=== PATIENT | female | born 1940 | race Caucasian/White ===

== ENCOUNTER 2020-02-11 10:18 | Emergency (ER) | payer MEDICARE, SELFPAY ==
[2020-02-11 10:32] VITALS: BMI 25.4
[2020-02-11 10:37] VITALS: BP 143/53; PULSE 86; RESP 18; TEMP 37.6; O2SAT 95; BMI 25.4
--- NOTE | 2020-02-11 10:39 | XR_ITS ---
PROCEDURE: XR CHEST 2V CLINICAL HISTORY: COUGH COMPARISON: CT [facility] CT CHEST W/O CONTRAST from 09/25/2015 FINDINGS: Mild cardiomegaly without failure. Asymmetric increased density in the left apex consistent with scarring similar to 09/25/2015 There is a partially calcified right breast implant. No acute bony findings. IMPRESSION: Chronic changes, no acute finding Dictated b Stephan Fiore MD 02/11/2020 11:43 Stephan Fiore MD in [place] 02/11/2020 11:43
--- NOTE | 2020-02-11 10:45 | HMH.EDGENADL ---
ED Disposition Clinical Impression: Viral upper respiratory infection UTI (urinary tract infection) Qualifiers: Urinary tract infection type: site unspecified Hematuria presence: without hematuria Qualified Code(s): N39.0 - Urinary tract infection, site not specified Disposition: Home, Self-Care Condition on Discharge: Good Instructions: DI for Urinary Tract Infection (UTI), DI for Viral Upper Respiratory Infection -- Adult Additional Instructions: Antibiotic as prescribed. Tessalon as needed for cough. Tylenol as needed for fever. Additional instructions for URINARY TRACT INFECTION: See your physician in 2-3 days for follow up and culture results. Return immediately if you have an uncontrollable fever greater than 102 degrees, severe back or abdominal pain, inability to urinate, or repetitive vomiting. Additional instructions for UPPER RESPIRATORY INFECTION: See your physician if not improving in 3-4 days or if worsening. Rest and drink plenty of fluids. Return immediately if you have an uncontrollable fever greater than 104 degrees, difficulty breathing or shortness of breath, persistent vomiting, or inability to swallow. Prescriptions: Cefdinir [Omnicef 300mg Capsule] 300 mg PO BID #20 cap Transmission Status: Received by [facility] #[id number] Benzonatate [Tessalon Perle 100mg Cap] 100 mg PO TIDP PRN #20 cap PRN Reason: Cough Transmission Status: Received by [facility] #[id number] Referrals: Neftaly Soares [Primary Care Provider] - - Critical Care Critical Care Time: No Attestation: On 02/11/20, the high probability of a clinically significant, sudden or life threatening deterioration of the following system(s) required my full and direct attention, intervention and personal management. The time I documented below is in addition to time spent performing reported procedures but includes the following listed in this critical care notation. Medical Decision Making - Medical Records Medical records reviewed: Yes: I reviewed the patient's medical records. - Dante Inquiry Pt receiving controlled substance: No Vital Signs: 02/11/20 10:37 02/11/20 11:54 Temperature 99.6 F 99.0 F Temperature Source Oral Oral Pulse Rate 84 Pulse Rate [Radial] 86 Respiratory Rate 18 16 Blood Pressure 140/82 Blood Pressure [Right Arm] 143/53 H Blood Pressure Mean [Right Arm] 83 Blood Pressure Source Automatic Cuff Blood Pressure Source [Right Arm] Automatic Cuff Blood Pressure Position Sitting 02 Sat by Pulse Oximetry 95 Oxygen Delivery Method Room Air Room Air - Lab Data Lab results reviewed: Yes: I reviewed the patient's lab results. Lab Results 02/11/20 10:47: WBC 7.5, RBC 3.37 L, Hgb 11.0 L, Hct 32.5 L, MCV 96.5, MCH 32.6 H, MCHC 33.7, RDW 16.4, Plt Count 141 L, MPV 8.3, Neut % (Auto) 83.3 H, Lymph % (Auto) 9.5 L, Bullock % (Auto) 5.0, Eos % (Auto) 1.9, Baso % (Auto) 0.4, Neut # (Auto) 6.3, Lymph # (Auto) 0.7, Bullock # (Auto) 0.4, Eos # (Auto) 0.1, Baso # (Auto) 0.0 02/11/20 10:47: Sodium 141, Potassium 3.9, Chloride 105, Carbon Dioxide 26, Anion Gap 13.9, BUN 25 H, Creatinine 1.50 H, Estimated Creat Clear 28, Estimated GFR 33 L, Est GFR ( Amer) 40 L, Glucose 105 H, Calcium 9.1, Total Bilirubin 0.9, AST 27, ALT 10 L, Alkaline Phosphatase 119, Total Protein 7.2, Albumin 4.1, Globulin 3.1, Albumin/Globulin Ratio 1.3 02/11/20 10:47: Urine Color Yellow, Urine Appearance Clear, Urine pH 6.0, Ur Specific [place] 1.010, Urine Protein Negative, Urine Glucose (UA) Negative, Urine Ketones Negative, Urine Blood 1+, Urine Nitrate Negative, Urine Bilirubin Negative, Urine Urobilinogen 0.2, Ur Leukocyte Esterase 2+ A, Urine RBC 3-5, Urine WBC 50-100, Ur Squamous Epith Cells Occasional, Amorphous Sediment 1+, Urine Bacteria None 02/11/20 10:47: Lactate 0.8 02/11/20 10:49: Chlamy pneumoniae PCR Not detected, Adenovirus (PCR) Not detected, B. pertussis DNA (PCR) Not detected, Coronavirus OC43 (PCR) Not d
[2020-02-11 10:54] LABS: Adenovirus,PCR Not Detected (NotDetected); Bordetella Pertussis Not Detected (NotDetected); Chlamydophila Pneumoniae, PCR Not Detected (NotDetected); Coronavirus 19, PCR Not Detected (NotDetected); Coronavirus 229E Not Detected (NotDetected); Coronavirus NL63 Not Detected (NotDetected); Coronavirus OC43 Not Detected (NotDetected); Coronovirus HKU1,PCR Not Detected (NotDetected); Human Metapneumovirus Not Detected (NotDetected); Influenza A, PCR Not Detected (NotDetected); Influenza AH1, 2009 Not Detected (NotDetected); Influenza AH1, PCR Not Detected (NotDetected); Influenza AH3,PCR Not Detected (NotDetected); Influenza B, PCR Not Detected (NotDetected); Mycoplasma Pneumoniae, PCR Not Detected (NotDetected); Parainfluenza 1, PCR Not Detected (NotDetected); Parainfluenza 2, PCR Not Detected (NotDetected); Parainfluenza 3, PCR Not Detected (NotDetected); Parainfluenza 4, PCR Not Detected (NotDetected); Respiratory Syncytial Virus Not Detected (NotDetected)
[2020-02-11 10:56] LABS: Microscopic, Urine URINE MICROSCOPIC (MICROSCOPIC)
[2020-02-11 10:58] LABS: Basophils % 0.4 % (0.1-2.0); Eosinophils # 0.1 K/mm3 (0.0-0.4); Eosinophils % 1.9 % (0.1-12.0); Hematocrit 32.5 % (37.0-47.0); Lymphocytes # 0.7 K/mm3 (0.7-4.5); Lymphocytes % 9.5 % (10-50); Mean Corpuscular HGB Conc 33.7 g/dL (31.8-35.4); Mean Corpuscular Hemoglobin 32.6 pg (27.0-31.2); Mean Corpuscular Volume 96.5 fl (81-99); Mean Platelet Volume 8.3 fl (7.4-10.4); Monocytes # 0.4 K/mm3 (0.1-1.0); Neutrophils # 6.3 K/mm3 (1.8-7.8); Neutrophils % 83.3 % (37.0-80.0); Platelet Count 141 K/mm3 (142-424); Red Blood Count 3.37 M/mm3 (4.20-5.40); Red Cell Distribution Width 16.4 % (11.5-17.5); White Blood Count 7.5 K/mm3 (4.8-10.8)
[2020-02-11 10:59] LABS: Appearance,Urine CLEAR (Clear); Bilirubin,Urine Negative (Negative); Blood, Urine 1+ (Negative); Color,Urine YELLOW (Yellow); Glucose,Urine (UA) Negative (Negative); Ketones,Urine Negative (Negative); Leukocyte Esterase,Urine 2+ (Negative); Nitrate,Urine Negative (Negative); Protein,Urine Negative (Negative); Urobilinogen,Urine 0.2 EU/dl (0.2)
[2020-02-11 11:04] LABS: Chloride 105 mmol/L (98-107); Potassium 3.9 mmoL/L (3.5-5.1); Sodium 141 mmol/L (136-145)
[2020-02-11 11:07] LABS: Alanine Aminotransferase 10 U/L (12-78); Albumin Level 4.1 g/dl (3.5-5.0); Albumin/Globulin Ratio 1.3 (1.1-1.8); Alkaline Phosphatase 119 U/L (38-126); Anion Gap 13.9 mEq/L (5-15); Aspartate Amino Transferase 27 U/L (14-36); Bilirubin,Total 0.9 mg/dl (0.2-1.3); Blood Urea Nitrogen 25 mg/dl (7-17); Calcium 9.1 mg/dl (8.4-10.2); Carbon Dioxide 26 mmol/L (22.0-30.0); Creatinine Clearance Estimated 28 mL/min (50-200); Estimated Glomerular Filt Rate 33 ml/min (>60); GFR (African American) 40 ML/MIN (>60); Globulin 3.1 g/dL (1.3-3.2); Glucose 105 mg/dl (74-100); Lactic Acid 0.8 mmol/L (0.7-2.1); Total Protein,Serum 7.2 g/dl (6.3-8.2); WBC,Urine 50-100 #/hpf (0-3)
[2020-02-11 11:08] LABS: Amorphous Sediment,Urine 1+ /lpf; Squamous Epithelial Cell,Urine Occasional #/hpf (0-5)
[2020-02-11 11:54] VITALS: BP 140/82; PULSE 84; RESP 16; TEMP 37.2; O2SAT 98
[2020-02-11 13:31] LABS: Rhinovirus/Enterovirus Detected (NotDetected)
== END 2020-02-11 11:56 | disposition home or self-care (01) ==
PROVIDERS: Emergency Provider Emergency Medicine; PCP Family Medicine
DX: J06.9 Acute upper respiratory infection, unspecified (principal); N30.00 Acute cystitis without hematuria; I10 Essential (primary) hypertension; E78.5 Hyperlipidemia, unspecified; B34.8 Other viral infections of unspecified site; Z79.899 Other long term (current) drug therapy
CPT/HCPCS: 71046; 80053; 81001; 83605; 85025; 87040; 87086; 87088; 87186; 87581; 87633; 87798; 96374; 99284

== ENCOUNTER 2022-08-13 04:17 | Inpatient (IN) | payer MEDICARE, SELFPAY ==
[2022-08-13] VITALS (16 sets, daily range): BP systolic 103–165; BP diastolic 55–97; PULSE 86–122; RESP 17–33; TEMP 36.5–36.9; O2SAT 89–96; BMI 22.2; BMI 22.8
--- NOTE | 2022-08-13 04:23 | ECG_ITS ---
APPROVED REPORT Exam: Resting ECG HR:119 bpm ECG Measurements Heart Rate 119 AXES QRSd 88 QRS 80 QT 297 T 253 QTc 368 Conclusion ATRIAL FIBRILLATION WITH RAPID VENTRICULAR RESPONSE ST DEVIATION AND MODERATE T-WAVE ABNORMALITY, CONSIDER LATERAL ISCHEMIA [-0.1+ mV T-WAVE IN I/aVL/V5/V6] ST DEVIATION AND MODERATE T-WAVE ABNORMALITY, CONSIDER INFERIOR ISCHEMIA [-0.1+ mV T-WAVE IN II/aVF] ABNORMAL ECG UNCONFIRMED REPORT Electronically signed by : Nico Strange MD 08/13/2022 20:20:51
--- NOTE | 2022-08-13 04:39 | XR_ITS ---
PROCEDURE INFORMATION: Exam: XR Right Hip Exam date and time: 08/13/2022 4:49 AM Age: 82 years old Clinical indication: Injury or trauma; Fall; Blunt trauma (contusions or hematomas); Right; Prior surgery; Surgery type: Left hip; Additional info: Fall, R hip pain TECHNIQUE: Imaging protocol: Radiologic exam of the Right hip. Views: 2 or 3 views hip with pelvis when performed. COMPARISON: No relevant prior studies available. FINDINGS: Bones/joints: Acute mildly displaced right subcapital femoral neck fracture with apex anterior angulation and varus impaction. The hips are located. Osteopenia. Intramedullary nail screw fixation of the left femur. Soft tissues: Unremarkable. IMPRESSION: Acute mildly displaced right subcapital femoral neck fracture with apex anterior angulation and varus impaction.
--- NOTE | 2022-08-13 04:39 | XR_ITS ---
PROCEDURE INFORMATION: Exam: XR Chest Exam date and time: 08/13/2022 4:48 AM Age: 82 years old Clinical indication: Injury or trauma; Fall; Blunt trauma (contusions or hematomas); Prior surgery; Additional info: Fall, R hip pain TECHNIQUE: Imaging protocol: Radiologic exam of the chest. Views: 1 view. COMPARISON: CR XR CHEST 2V 02/11/2020 10:49 AM FINDINGS: Lungs: Pulmonary vascular congestion. Similar scarring at the left lung apex. Pleural spaces: Small bilateral pleural effusions. No pneumothorax. Heart/Mediastinum: Cardiomegaly. Bones/joints: Unremarkable. Soft tissues: Calcified right breast implant. Gastrointestinal tract: Possible diverticulum arising from the upper thoracic esophagus. IMPRESSION: Cardiomegaly with small bilateral pleural effusions and pulmonary vascular congestion.
[2022-08-13 04:48] LABS: Basophils % 0.3 % (0.1-2.0); Eosinophils % 0.3 % (0.1-12.0); Hematocrit 33.4 % (37.0-47.0); Hemoglobin 10.4 g/dL (12.2-16.2); Lymphocytes # 0.9 K/mm3 (0.7-4.5); Mean Corpuscular HGB Conc 31.2 g/dL (31.8-35.4); Mean Corpuscular Hemoglobin 32.1 pg (27.0-31.2); Mean Platelet Volume 7.8 fl (7.4-10.4); Monocytes # 0.6 K/mm3 (0.1-1.0); Monocytes % 7.3 % (1.7-9.3); Neutrophils # 6.3 K/mm3 (1.8-7.8); Neutrophils % 80.1 % (37.0-80.0); Platelet Count 176 K/mm3 (142-424); Red Blood Count 3.24 M/mm3 (4.20-5.40); Red Cell Distribution Width 17.2 % (11.5-17.5); White Blood Count 7.9 K/mm3 (4.8-10.8)
[2022-08-13 04:55] LABS: Coronavirus 19, PCR Not Detected (NotDetected); Influenza A, PCR Not Detected (NotDetected); Influenza B, PCR Not Detected (NotDetected)
--- NOTE | 2022-08-13 05:00 | CT_ITS ---
PROCEDURE INFORMATION: Exam: CT Right Lower Extremity Without Contrast, Hip Exam date and time: 08/13/2022 5:13 AM Age: 82 years old Clinical indication: Injury or trauma; Fall; Additional info: Fall, hip FX TECHNIQUE: Imaging protocol: CT of the Right lower extremity without contrast was performed. Exam focused on the hip. Radiation optimization: All CT scans at this facility use at least one of these dose optimization techniques: automated exposure control; mA and/or kV adjustment per patient size (includes targeted exams where dose is matched to clinical indication); or iterative reconstruction. Other protocol: This patient has received 0 known CTs and 0 known cardiac nuclear medicine studies in the 12 months prior to the current study. COMPARISON: CR XR HIP RT 2-3V W/PELVIS 08/13/2022 4:49 AM FINDINGS: Bones/joints: Acute mildly displaced right subcapital femoral neck fracture with apex anterior angulation and varus impaction. The right hip is located. Osteopenia. There is some ill-defined edema and hemorrhage about the right hip. No large discrete hematoma. Soft tissues: See Bones/joints finding. IMPRESSION: Acute mildly displaced right subcapital femoral neck fracture with apex anterior angulation and varus impaction
[2022-08-13 05:02] LABS: Alanine Aminotransferase 24 U/L (12-78); Albumin Level 4.2 g/dl (3.5-5.0); Albumin/Globulin Ratio 1.4 (1.1-1.8); Alkaline Phosphatase 129 U/L (38-126); Anion Gap 8.7 mEq/L (5-15); Aspartate Amino Transferase 43 U/L (14-36); Bilirubin,Total 0.9 mg/dl (0.2-1.3); Blood Urea Nitrogen 31 mg/dl (7-17); Calcium 8.6 mg/dl (8.4-10.2); Carbon Dioxide 31 mmol/L (22.0-30.0); Chloride 107 mmol/L (98-107); Creatinine Clearance Estimated 24 mL/min (50-200); Estimated Glomerular Filt Rate 36 ml/min (>60); GFR (African American) 43 ML/MIN (>60); Glucose 129 mg/dl (74-100); Potassium 3.7 mmoL/L (3.5-5.1); Sodium 143 mmol/L (136-145); Total Protein,Serum 7.2 g/dl (6.3-8.2)
[2022-08-13 05:11] LABS: NT Pro Brain Natriuretic Pep. 6240 pg/mL (0-450)
[2022-08-13 05:19] LABS: T4 (Thyroxine) 10.6 ug/dl (5.53-11.0)
--- NOTE | 2022-08-13 05:41 | PC.NURSE ---
Patients daughter states that her mother has had a dti on her coccyx that she has been treating at home with rx silvadene cream that was given to her by her pcp.
--- NOTE | 2022-08-13 05:44 | PC.NURSE ---
increased pt's o2 to 4lpm nc d/t sat maintaining 85% after returning from ct scan
--- NOTE | 2022-08-13 05:45 | PC.NURSE ---
edmonds cath placed, pt tolerated fair d/t hip pain with positioning
--- NOTE | 2022-08-13 05:54 | PC.NURSE ---
Dr. Schroeder s/w Joshua Szymanski, hospitalist, for admission
[2022-08-13 06:05] LABS: Microscopic, Urine URINE MICROSCOPIC (MICROSCOPIC)
--- NOTE | 2022-08-13 06:05 | PC.NURSE ---
hospitalist at bedside
--- NOTE | 2022-08-13 06:06 | HMH.EDFALL ---
Discharge Plan Disposition Patient Disposition: Admitted As Inpatient Clinical Impressions Clinical Impression: Chronic renal insufficiency, Closed hip fracture, A-fib, Hypothyroidism (acquired) Discharge ED Provider: Elda (ED)Corey Fall HPI General Chief Complaint: Fall Stated Complaint: Fall/Right hip pain Time Seen by Provider: 08/13/22 05:45 Mode of Arrival: EMS Source of Information: Patient, Relative, EMS and Medical Record Limitations: No Limitations Description of Symptoms (Recalled from ER Triage Doc. by RN): Patient arrived via ems from [facility]. Per EMS, patient was ambulating with family assistance from her wheel chair into her recliner at approx 2230 when she fell. Patient was assisted into bed by family and has been c/o right hip pain since. Pt also had a left hip fracture and replacement 5 months ago. History of Present Illness HPI Narrative: fall at home with acute rt hip pain MD complaint: fall Onset (ago): hour(s) Fall from: walking Fall witnessed: yes, by family Place fall occurred: home Loss of consciousness: none Prolonged down time: no Symptoms prior to fall: none Context: tripped/slipped and history of frequent falls Location of injury - extremities: Right: thigh Severity: moderate Related Data Home Medications Medication Instructions Recorded Confirmed atorvastatin 40 mg tablet 40 mg PO HS Cholesterol 02/11/20 08/13/22 furosemide 40 mg tablet 20 mg PO DIRECTED Fluid 02/11/20 08/13/22 levothyroxine 75 mcg tablet 50 mcg PO DAILY thyroid 02/11/20 08/13/22 lorazepam 1 mg tablet 1 mg PO HS Anxiety 02/11/20 08/13/22 metoprolol succinate 50 mg 100 mg PO DAILY beta vj 02/11/20 08/13/22 tablet,extended release 24 hr pantoprazole 40 mg tablet,delayed 40 mg PO BID GERD 02/11/20 08/13/22 release potassium chloride 10 mEq 10 meq PO DIRECTED Supplement 02/11/20 08/13/22 capsule,extended release buspirone 15 mg tablet 15 mg PO BID Depression 08/13/22 08/13/22 duloxetine 30 mg capsule,delayed 30 mg PO DAILY Pain 08/13/22 08/13/22 release famotidine 20 mg tablet 20 mg PO HS GERD 08/13/22 08/13/22 Allergies Allergy/AdvReac Type Severity Reaction Status Date / Time clindamycin AdvReac Nausea Verified 08/13/22 04:40 [facility] Disclaimer: The information contained in this section may have been updated after the patient was seen, as this information can be updated by other users. Medical History (Updated 08/13/22 @ 06:17 by Corey Schroeder (CAR)MD) Atrial fibrillation COPD (chronic obstructive pulmonary disease) History of gastroesophageal reflux (GERD) Hyperlipidemia Hypertension On home oxygen therapy Surgical History (Updated 08/13/22 @ 04:49 by Annie Emmanuel RN) History of hip replacement Social History Smoking Status: Never smoker alcohol intake: never current occupational status: retired Travel in the last 8 weeks: None ROS Obtained: Yes All systems reviewed & no additional complaints except as documented Physical Exam General General appearance: alert Head Head exam: normocephalic Eye Eye exam: Present PERRL and EOMI ENT ENT exam: Present mucous membranes moist Neck Neck exam: Present trachea midline Respiratory Respiratory exam: Absent respiratory distress Cardiovascular Cardiovascular exam: Present irregular rhythm Abdominal Exam Abdominal exam: Present soft Expanded Lower Extremity Exam Right: Hip/Pelvis exam: Present shortening of leg and pain on hip/pelvis palpation Neurovascular/Tendon exam: Absent pulse deficit Neurological Exam Neurological exam: Present alert and CN II-XII intact Skin Skin exam: Absent rash Medical Decision Making Medical Records Medical records reviewed: Yes I reviewed the patient's medical records. Dante Inquiry Pt receiving controlled substance: No Vital Signs: 08/13/22 04:28 Temperature 98 F Temperature Source Oral Pulse Rate [Apical] 104 H Respiratory Rat
--- NOTE | 2022-08-13 06:06 | PC.NURSE ---
Called general warehouse associate for bed assignment
--- NOTE | 2022-08-13 06:15 | EXP.HP ---
History of Present Illness *Admission Date: 08/13/22 *Reason for visit:: Fall, Right Hip Pain *History of present illness: Ms. Griffin is a 82-year-old female who fell at home from ground level while family was transferring her to her wheel chair. This resulted in immediate pain. She was brought into the ER for evaluation. In the ER, she had imaging of the hip that showed a mildly displaced right subcapital femoral fracture with apex anterior angulation and varus impaction. She will be admitted with Orthopaedics to see. The plan of care was discussed with the patient and daughter at bedside. Both verbalized understanding and agreement with the plan of care. [facility] Disclaimer: The information contained in this section may have been updated after the patient was seen, as this information can be updated by other users. Medical History Aortic stenosis Atrial fibrillation Breast cancer Cardiomyopathy CHF (congestive heart failure) COPD (chronic obstructive pulmonary disease) Dyspnea Elevated troponin History of gastroesophageal reflux (GERD) History of GI bleed Hyperlipidemia Hypertension On home oxygen therapy Tricuspid regurgitation Surgical History H/O bilateral mastectomy History of hip replacement Family History (Updated 08/13/22 @ 12:17 by Jessica Salazar RN) Lung cancer Social History Smoking Status: Never smoker alcohol intake: never current occupational status: retired Travel in the last 8 weeks: None Review of Systems Review of Systems Review of systems:: pertinent systems reviewed and negative unless documented below Constitutional Constitutional: Reports system reviewed and no additional complaints, except as documented Eyes Eyes: Reports system reviewed and no additional complaints, except as documented ENT Ears, Nose, Mouth, and Throat: Reports system reviewed and no additional complaints, except as documented *Cardiovascular Cardiovascular: Reports system reviewed and no additional complaints, except as documented *Respiratory Respiratory: Reports system reviewed and no additional complaints, except as documented *Gastrointestinal Gastrointestinal: Reports system reviewed and no additional complaints, except as documented *Genitourinary Genitourinary: Reports system reviewed and no additional complaints, except as documented *Musculoskeletal Musculoskeletal: Reports arthralgias and Reports muscle weakness Integumentary/Breasts Skin/Breast: Reports system reviewed and no additional complaints, except as documented *Neurologic Neurologic: Reports system reviewed and no additional complaints, except as documented Psychiatric Psychiatric: Reports system reviewed and no additional complaints, except as documented Endocrine Endocrine: Reports system reviewed and no additional complaints, except as documented Hematologic/Lymphatic Hematologic/Lymphatic: Reports system reviewed and no additional complaints, except as documented Allergic/Immunologic Allergic/Immunologic: Reports system reviewed and no additional complaints, except as documented Meds Home Medications and Allergies Home Medications Medication Instructions Recorded Confirmed Type atorvastatin 40 mg tablet 40 mg PO HS Cholesterol 02/11/20 08/13/22 History furosemide 40 mg tablet 40 mg PO DAILY Fluid 02/11/20 08/13/22 History lorazepam 1 mg tablet 1 mg PO HS Anxiety 02/11/20 08/13/22 History metoprolol succinate 50 mg 50 mg PO BID Hypertension 02/11/20 08/13/22 History tablet,extended release 24 hr pantoprazole 40 mg tablet,delayed 40 mg PO BID GERD 02/11/20 08/13/22 History release potassium chloride 10 mEq 10 meq PO MOWEFR Supplement 02/11/20 08/13/22 History capsule,extended release allopurinol 100 mg tablet 100 mg PO DAILY GOUT 08/13/22 08/13/22 History buspirone
[2022-08-13 06:24] LABS: Appearance,Urine CLOUDY (Clear); Bilirubin,Urine Negative (Negative); Blood, Urine 3+ (Negative); Color,Urine YELLOW (Yellow); Glucose,Urine (UA) Negative (Negative); Ketones,Urine Negative (Negative); Leukocyte Esterase,Urine 3+ (Negative); Nitrate,Urine Negative (Negative); PH,Urine 5.5 (5.0-8.5); Protein,Urine 1+ (Negative); Urobilinogen,Urine 0.2 EU/dl (0.2)
[2022-08-13 06:30] LABS: Troponin I 0.07 ng/ml (0.00-0.034)
--- NOTE | 2022-08-13 06:41 | PC.NURSE ---
called report to Ambar MILLER on 2nd floor. Pt's sats staying steady @ 94% on 4LPM NC, titrated o2 back down to home o2 of 3lpm NC
--- NOTE | 2022-08-13 06:50 | PC.NURSE ---
med/surg staff here to transport pt to 2nd floor via stretcher
[2022-08-13 06:53] LABS: Bacteria,Urine 1+ /lpf; WBC,Urine TNTC #/hpf (0-3)
--- NOTE | 2022-08-13 06:53 | PC.NURSE ---
PT ARRIVED TO FLOOR AT THIS TIME
--- NOTE | 2022-08-13 07:19 | HMH.PHAINT1 ---
Pharmacy Intervention Comments: MEDICATION RECONCILIATION COMPLETED ON PATIENT USING EXTERNAL FILL HISTORY FROM PHARMACY. -ANGEL SCRUGGS, SAMANTHAD
--- NOTE | 2022-08-13 07:50 | CA_ITS ---
APPROVED REPORT EXAM: Comprehensive 2D, Doppler, and color-flow Echocardiogram Assistant Superintendent For Curriculum: Martita Rao, RT(R) Ht: 4 ft 11 in Wt: 114lbs BSA: 1.45 BP: 153/83 mmHg Indications: NSTEMI, COPD, CHF, AFIB, GERD, home o2, rt hip fracture pre op, limited windows secondary to breat implants, HTN, hyperlipidemia 2D Dimensions LVOT 1.90 cm (M/F) 1.5-2.5 M-Mode Dimensions RVDd 2.72 cm (0.9-2.6) LA Diam 4.52 cm (1.9-4.0) LVDd 3.26 cm (3.5-5.7) LVDs 2.33 cm (3.5-5.7) IVSd 1.25 cm (0.6-1.1) PWd 0.82 cm (0.6-1.1) EF (Teich) 56.30% FS 28.50% EDV (Teich) 42.80 mL ESV (Teich) 18.70 mL Aortic Valve LVOT Max 74.90 (70-110 cm/s) LVOT VTI 13.39 cm AoV Peak Kian. 183.90 (50-130 cm/s) AO Peak GR. 13.50 mmHg AO Mean GR. 6.60 (<5 mmHg) AO VTI 28.19 (18-25 cm) CHARLINE (VTI) 1.35 (2.5-4.5 cm2) Tricuspid Valve TR P. Velocity 200.05 cm/s RAP Estimate 12.50 mmHg RVSP 28.60 mmHg Left Ventricle Left atrium is moderately enlarged, left ventricular is normal size, estimated ejection fraction approximately 50%, there is abnormal septal motion, there is flattening of the interventricular septum during systole and diastole consistent with pressure and volume overload on right ventricle. Diastolic parameters are inconclusive. Right Ventricle Right atrium is moderately enlarged, right mild-moderately dilated with normal contractility. Aortic Valve Aortic valve is thickened and calcified with restriction of the leaflet mobility, however Doppler does not indicate severe aortic stenosis, there is mild aortic insufficiency. Mitral Valve Mitral valve has dense mitral annular calcification, which extending both into posterior mitral leaflet, mitral inflow velocity is not indicated for significant mitral stenosis, there is moderate mitral regurgitation. Tricuspid Valve Tricuspid valve leaflets are minimally thickened, there is moderate to severe tricuspid regurgitation, tricuspid regurgitation jet velocity has configuration of the V wave indicating of raised right atrial pressure. Calculated right ventricular systolic pressure is 34 mmHg. Pulmonic Valve Pulmonic valve is poorly visualized. Great Vessels Aortic root is normal size. Inferior vena cava is mildly dilated with less than 50% inspiratory collapse. Pericardium No significant pericardial effusion noted. Conclusion 1. Biatrial enlargement, normal left ventricular size, estimate ejection fraction 50%, there is abnormal septal motion, there is flattening of the interventricular septum during systole and diastole consistent with pressure and volume overload on right ventricle. Diastolic parameters are inconclusive. 2. Moderately enlarged right ventricle with normal contractility. 3. Thickened and calcified aortic valve with restriction of the leaflet mobility, however Doppler is not indicative of significant aortic stenosis, there is mild aortic insufficiency. 4. Moderate mitral and moderate to severe tricuspid regurgitation, tricuspid regurgitation jet velocity has configuration of V wave indicating increased right atrial pressure. 5. Inferior vena cava is moderately dilated with less than 50% inspiratory collapse. 6. No significant pericardial effusion noted. Electronically signed by : Durga Gagnon MD 08/13/2022 19:21:49
[2022-08-13 08:44] LABS: Troponin I 0.15 ng/ml (0.00-0.034)
[2022-08-13 08:59] LABS: Vitamin B12 420 pg/mL (239-931)
--- NOTE | 2022-08-13 09:52 | EXP.CARD.CON ---
History of Present Illness History of Present Illness Consult date: 08/13/22 Requesting physician: Salvador Colon Consult reason: congestive heart failure and pre-op evaluation Chief complaint: R hip pain History of present illness: This is an 82-year-old white female who presented to the emergency department after a fall from home. The patient reports that her family was helping her get to the recliner from her wheelchair. The patient forgot to lock her wheelchair and she slipped backwards and fell before anyone could break her fall. The patient had immediate right hip pain and was brought to the emergency department for evaluation. This showed a mildly displaced right subcapital femoral fracture with apex anterior angulation and varus impaction. The patient was admitted to the hospital and orthopedics has been consulted. Cardiology has been consulted to give risk stratification prior to surgery. The patient has a history of chronic atrial fibrillation with no anticoagulation secondary to history of GI bleed and the falls risk. The patient was recently admitted in June 2022 for an exacerbation of congestive heart failure. She denies any coronary artery disease or CA. She denies any chest pain or pressure at this time. The patient is short of breath all the time. She states that she has been short of breath for several years and this is not changed from her baseline. Of note, she did fall back in March 2022 and fractured her left hip with surgical repair. She states since that time she has had bilateral lower extremity edema. When she was admitted to the hospital in June she was treated with IV Lasix and did have improvement in the lower extremity edema. She denies any fever, chills, nausea, vomiting, diarrhea. The patient did have a slight elevation in her troponin at 0.07 on admission. She also had an elevated BNP at 6240 as well as an elevated TSH at 11.70. Patient's urine is positive for UTI. Preliminary echocardiogram shows an ejection fraction of 40-45% with abnormal septal wall motion, moderate TR and moderate aortic stenosis. [facility] Disclaimer: The information contained in this section may have been updated after the patient was seen, as this information can be updated by other users. Medical History Aortic stenosis Atrial fibrillation Cardiomyopathy CHF (congestive heart failure) COPD (chronic obstructive pulmonary disease) Dyspnea Elevated troponin History of gastroesophageal reflux (GERD) History of GI bleed Hyperlipidemia Hypertension On home oxygen therapy Tricuspid regurgitation Surgical History History of hip replacement Social History Smoking Status: Never smoker alcohol intake: never current occupational status: retired Travel in the last 8 weeks: None Review of Systems Review of Systems Review of systems:: pertinent systems reviewed and negative unless documented below Constitutional Constitutional: Reports system reviewed and no additional complaints, except as documented, Reports frequent falls and Reports lethargy Eyes Eyes: Reports system reviewed and no additional complaints, except as documented ENT Ears, Nose, Mouth, and Throat: Reports system reviewed and no additional complaints, except as documented *Cardiovascular Cardiovascular: Reports system reviewed and no additional complaints, except as documented, Denies chest pain, Reports dyspnea and Reports dyspnea on exertion *Respiratory Respiratory: Reports system reviewed and no additional complaints, except as documented, Reports dyspnea and Reports dyspnea on exertion *Gastrointestinal Gastrointestinal: Reports system reviewed and no additional complaints, except as documented *Genitourinary Genitourinary: Reports system reviewed and no additional complaints, except as doc
--- NOTE | 2022-08-13 11:12 | SW/DCPLANNER ---
Addendum entered by Mami Lee RN 08/14/22 09:44: [facility] states they can accept patient, but will need therapy evals following surgery to start authorizations process. Original Note: I spoke with this patient and her daughter regarding plans once medically stable for discharge. Daughter stated that patient lives with her and she cares for her 27/01. Patient has been to SNF level of care in the past. Daughter stated that she would prefer to return home with patient if possible. I did contact local/surrounding facilities to see who is in network with patient's insurance. The following facilities are in network: [facility], [facility] and [facility]. Daughter stated that if placement is needed they would prefer [facility] and are agreeable for me to fax patient information. I have faxed patient information to [facility]/ [facility]. Surgery date is unknown at this time.
--- NOTE | 2022-08-13 11:38 | EXP.ORTH.CON ---
History of Present Illness *Admission Date: 08/13/22 *History of present illness: Ms. Griffin is a 82-year-old female who fell at home from ground level while family was transferring her to her wheel chair. This resulted in immediate pain. She was brought into the ER for evaluation. In the ER, she had imaging of the hip that showed a mildly displaced right subcapital femoral fracture with apex anterior angulation and varus impaction. Orthopedics consulted for definitive treatment of right hip fracture. [facility] Disclaimer: The information contained in this section may have been updated after the patient was seen, as this information can be updated by other users. Medical History Aortic stenosis Atrial fibrillation Cardiomyopathy CHF (congestive heart failure) COPD (chronic obstructive pulmonary disease) Dyspnea Elevated troponin History of gastroesophageal reflux (GERD) History of GI bleed Hyperlipidemia Hypertension On home oxygen therapy Tricuspid regurgitation Surgical History History of hip replacement Social History Smoking Status: Never smoker alcohol intake: never current occupational status: retired Travel in the last 8 weeks: None Review of Systems Constitutional Constitutional: Reports frequent falls *Musculoskeletal Musculoskeletal: Reports abnormal gait *Neurologic Neurologic: Reports system reviewed and no additional complaints, except as documented, Reports abnormal gait and Reports frequent falls Meds Home Medications and Allergies Home Medications Medication Instructions Recorded Confirmed Type atorvastatin 40 mg tablet 40 mg PO HS Cholesterol 02/11/20 08/13/22 History furosemide 40 mg tablet 40 mg PO DAILY Fluid 02/11/20 08/13/22 History lorazepam 1 mg tablet 1 mg PO HS Anxiety 02/11/20 08/13/22 History metoprolol succinate 50 mg 50 mg PO BID Hypertension 02/11/20 08/13/22 History tablet,extended release 24 hr pantoprazole 40 mg tablet,delayed 40 mg PO BID GERD 02/11/20 08/13/22 History release potassium chloride 10 mEq 10 meq PO MOWEFR Supplement 02/11/20 08/13/22 History capsule,extended release allopurinol 100 mg tablet 100 mg PO DAILY GOUT 08/13/22 08/13/22 History buspirone 15 mg tablet 15 mg PO BID Anxiety 08/13/22 08/13/22 History buspirone 7.5 mg tablet 7.5 mg PO BID Anxiety 08/13/22 08/13/22 History cetirizine 10 mg tablet 10 mg PO DAILY Allergy symptoms 08/13/22 08/13/22 History duloxetine 30 mg capsule,delayed 30 mg PO DAILY Pain 08/13/22 08/13/22 History release famotidine 20 mg tablet 20 mg PO HSP PRN Heartburn 08/13/22 08/13/22 History levothyroxine 50 mcg tablet 50 mcg PO DAILY THYROID 08/13/22 08/13/22 History New Prescriptions to Start Prescriptions: Allergies Allergy/AdvReac Type Severity Reaction Status Date / Time clindamycin AdvReac Nausea Verified 08/13/22 04:40 Ortho Exam (Inpt) Vital signs and Labs for Last 24 Hours: Temp Pulse Resp BP Pulse Ox 97.7 F 96 H 24 160/87 H 90 L 08/13/22 07:05 08/13/22 07:05 08/13/22 07:05 08/13/22 07:05 08/13/22 07:05 Laboratory Results - last 24 hr 08/13/22 04:22: WBC 7.9, RBC 3.24 L, Hgb 10.4 L, Hct 33.4 L, MCV 103.0 H, MCH 32.1 H, MCHC 31.2 L, RDW 17.2, Plt Count 176, MPV 7.8, Neut % (Auto) 80.1 H, Lymph % (Auto) 12.0, Callahan % (Auto) 7.3, Eos % (Auto) 0.3, Baso % (Auto) 0.3, Neut # (Auto) 6.3, Lymph # (Auto) 0.9, Callahan # (Auto) 0.6, Eos # (Auto) 0.0, Baso # (Auto) 0.0 08/13/22 04:22: Sodium 143, Potassium 3.7, Chloride 107, Carbon Dioxide 31 H, Anion Gap 8.7, BUN 31 H, Creatinine 1.40 H, Estimated Creat Clear 24, Estimated GFR 36 L, Est GFR ( Amer) 43 L, Glucose 129 H, Calcium 8.6, Total Bilirubin 0.9, AST 43 H, ALT 24, Alkaline Phosphatase 129 H, Total Protein 7.2, Albumin 4.2, Globulin 3.0, Albumin/Globulin Ratio 1.4 02
[2022-08-13 11:56] LABS: Troponin I 0.22 ng/ml (0.00-0.034)
--- NOTE | 2022-08-13 14:14 | HMH.PTWOUND ---
Rehab Inpt Wound Evaluation Rehab IP Wound Evaluation Start: 08/13/22 10:06 Freq: ONCE Status: Active Protocol: Document 08/13/22 14:07 PHOBOB (Rec: 08/13/22 14:14 PHORNE [id number]) Rehab PT Wound Assessment Patient Status Premedicated Prior to Dressing Change Yes Subjective Subjective 82 yowf adm to [facility] after fall with resulting R hip fx, awaiting surgical fixation. She presented with wound on her sacrum that was pre- existing. Family reports they have been treating this wound for some time at home already and this is an area that she had a prior pressure injury of unknown stage. Currently the wound presents as a stage II presure injury, but is likely a healing stage III from hx obtained from pts family. Wound Sacrum Wound Type Pressure Ulcer Is This a Chronic Wound Yes Wound Staging Stage II Query Text:Stage I - Unbroken, red skin, no blanching. Stage II - Skin broken, superficial skin loss involving epidermis alone or also dermis. Partial loss of skin layers. Stage III - Pressure area involves epidermis, dermis and subcutaneous tissue, full thickness skin loss. Stage IV - Pressure area involves epidermis, subcutaneous tissue, bone and other supportive tissue. Full thickness skin loss with extensive destruction of underlying tissue and structures. Wound Length (cm) 1.0 Wound Width (cm) 1.0 Wound Depth (cm) 0.1 Wound Bed Appearance Beefy Red,Yellow Percentage Granulated (%) 75 Percentage of Slough (%) 25 Wound Margins Description Well Defined Surrounding Tissue Appearance Ali Molina Wound Drainage Description Serous Drainage Amount Small Drainage Odor No Odor Primary Dressing Composite Wound Debridement Method Gauze Wound Debridement Amount of Tissue Minimal Removed Dressing Change Patient Tolerance Tolerated Well Plan/Recommendation Comment Nsg to maintain current efforts at pressure relief with rolling/turning schedule as appropriate. Current
--- NOTE | 2022-08-13 14:32 | PC.NURSE ---
rounded on patient this shift. admission done. awaiting for surgery tomorrow. no questions or concerns currently. DNR status in place. encouraged family and patietn to ring out as needed
--- NOTE | 2022-08-13 18:03 | PC.NURSE ---
PT ALERT X4, BED BOUND AT THE TIME. RT HIP FX, PLAN IS FOR SURGERY TOMORROW. PT HAS A STAGE 2 ON COCCYX WITH DSG CDI. ACHARYA IN PLACE. PT ON 4L NC, PT IS ON 3-4L AT HOME. DAUGHTER AT BEDSIDE. PT HAS C/O PAIN TWICE, TREATED PER SEP. NO CONCERNS AT THIS TIME.
[2022-08-13 19:20] LABS: Anion Gap 11.1 mEq/L (5-15); Blood Urea Nitrogen 30 mg/dl (7-17); Calcium 9.2 mg/dl (8.4-10.2); Carbon Dioxide 32 mmol/L (22.0-30.0); Chloride 105 mmol/L (98-107); Creatinine Clearance Estimated 25 mL/min (50-200); Estimated Glomerular Filt Rate 36 ml/min (>60); GFR (African American) 43 ML/MIN (>60); Glucose 128 mg/dl (74-100); Potassium 4.1 mmoL/L (3.5-5.1); Sodium 144 mmol/L (136-145)
--- NOTE | 2022-08-13 19:50 | PC.NURSE ---
SRNA notified this RN that pt HR was 122 at this time.
--- NOTE | 2022-08-13 20:10 | PC.NURSE ---
Notified Joshua FOOD VENDOR of pt HR and pt appears to be Afib on telemetry. FOOD VENDOR states to give 2100 Metoprolol and recheck after 2 hours.
[2022-08-14] VITALS (19 sets, daily range): BP systolic 77–159; BP diastolic 41–79; PULSE 83–137; RESP 18–27; TEMP 35.9–36.6; O2SAT 86–99; BMI 22.3
--- NOTE | 2022-08-14 01:07 | PC.NURSE ---
Notified Joshua that pt continues to be Afib but HR is running 90-105
--- NOTE | 2022-08-14 07:03 | PC.NURSE ---
Pt has c/o pain in right hip 1x t/o night. PRN pain medication administered. Call light within reach. Daughter at bedside
--- NOTE | 2022-08-14 07:05 | PC.NURSE ---
Pt remains in Afib with HR of 90-110.
[2022-08-14 07:26] LABS: Basophils % 0.3 % (0.1-2.0); Eosinophils % 0.3 % (0.1-12.0); Hematocrit 35.5 % (37.0-47.0); Hemoglobin 11.2 g/dL (12.2-16.2); Lymphocytes # 0.9 K/mm3 (0.7-4.5); Lymphocytes % 12.1 % (10-50); Mean Corpuscular HGB Conc 31.6 g/dL (31.8-35.4); Mean Corpuscular Hemoglobin 32.4 pg (27.0-31.2); Mean Corpuscular Volume 102.5 fl (81-99); Monocytes # 0.4 K/mm3 (0.1-1.0); Monocytes % 5.4 % (1.7-9.3); Platelet Count 142 K/mm3 (142-424); Red Blood Count 3.46 M/mm3 (4.20-5.40); Red Cell Distribution Width 17.3 % (11.5-17.5); White Blood Count 7.3 K/mm3 (4.8-10.8)
[2022-08-14 07:37] LABS: Chloride 108 mmol/L (98-107); Potassium 4.1 mmoL/L (3.5-5.1); Sodium 144 mmol/L (136-145)
[2022-08-14 07:39] LABS: Blood Urea Nitrogen 31 mg/dl (7-17)
[2022-08-14 07:40] LABS: Alanine Aminotransferase 25 U/L (12-78); Albumin Level 3.9 g/dl (3.5-5.0); Albumin/Globulin Ratio 1.3 (1.1-1.8); Alkaline Phosphatase 114 U/L (38-126); Anion Gap 9.1 mEq/L (5-15); Aspartate Amino Transferase 48 U/L (14-36); Bilirubin,Total 1.2 mg/dl (0.2-1.3); Calcium 8.7 mg/dl (8.4-10.2); Carbon Dioxide 31 mmol/L (22.0-30.0); Creatinine Clearance Estimated 24 mL/min (50-200); Estimated Glomerular Filt Rate 36 ml/min (>60); GFR (African American) 43 ML/MIN (>60); Globulin 3.1 g/dL (1.3-3.2); Glucose 113 mg/dl (74-100); Magnesium 1.4 mg/dl (1.6-2.3)
[2022-08-14 08:58] LABS: Chol/HDL Ratio 2.2 (1-3.5); Cholesterol 110 mg/dl (140-200); HDL Cholesterol 51 mg/dl (40-60); Triglycerides 107 mg/dl (30-150); VLDL Cholesterol 21 mg/dL (0-40)
[2022-08-14 09:09] LABS: Direct LDL Cholesterol 34.76 mg/dL (100-129)
--- NOTE | 2022-08-14 11:25 | EXP.CARD.PN ---
Subjective Subjective Date: 08/14/22 Time: 10:30 Principal diagnosis: CHF, pre-op evaluation Interval history: This is an 82-year-old white female presented to the emergency department after a fall at home. The patient did have a fractured right hip and will have to undergo surgical intervention. Cardiology was consulted for risk stratification. The patient is chronically short of breath. She states that she does feel better this morning after IV diuresis overnight. She had over a -2000 fluid balance overnight with IV diuresis. Her echocardiogram showed an ejection fraction of 45 to 50% with flattening of the intraventricular septum consistent with volume overload and moderate tricuspid regurgitation. She denies any chest pain or pressure. She states that she has had lower extremity edema since March. This has improved overnight. She denies any fever, chills, nausea, vomiting, diarrhea. The patient does complain of pain in her right hip. She is very eager to proceed with surgery at this time. She states the longer she waits the more anxious she gets. Exam Data for Last 24 hours Vital signs and Labs for Last 24 Hours: Temp Pulse Resp BP Pulse Ox 97.7 F 128 H 19 133/77 91 L 08/14/22 11:12 08/14/22 11:12 08/14/22 11:12 08/14/22 11:12 08/14/22 11:12 Laboratory Results - last 24 hr 08/13/22 10:55: Troponin I 0.22 H 08/13/22 18:28: Sodium 144, Potassium 4.1, Chloride 105, Carbon Dioxide 32 H, Anion Gap 11.1, BUN 30 H, Creatinine 1.40 H, Estimated Creat Clear 25, Estimated GFR 36 L, Est GFR ( Amer) 43 L, Glucose 128 H, Calcium 9.2 08/14/22 07:00: WBC 7.3, RBC 3.46 L, Hgb 11.2 L, Hct 35.5 L, MCV 102.5 H, MCH 32.4 H, MCHC 31.6 L, RDW 17.3, Plt Count 142, MPV 8.0, Neut % (Auto) 82.0 H, Lymph % (Auto) 12.1, [place] % (Auto) 5.4, Eos % (Auto) 0.3, Baso % (Auto) 0.3, Neut # (Auto) 6.0, Lymph # (Auto) 0.9, [place] # (Auto) 0.4, Eos # (Auto) 0.0, Baso # (Auto) 0.0 08/14/22 07:00: Sodium 144, Potassium 4.1, Chloride 108 H, Carbon Dioxide 31 H, Anion Gap 9.1, BUN 31 H, Creatinine 1.40 H, Estimated Creat Clear 24, Estimated GFR 36 L, Est GFR ( Amer) 43 L, Glucose 113 H, Calcium 8.7, Magnesium 1.4 L, Total Bilirubin 1.2, AST 48 H, ALT 25, Alkaline Phosphatase 114, Total Protein 7.0, Albumin 3.9, Globulin 3.1, Albumin/Globulin Ratio 1.3 08/14/22 07:00: Triglycerides 107, Cholesterol 110 L, LDL Cholesterol Direct 34.76 L, VLDL Cholesterol 21, HDL Cholesterol 51, Cholesterol/HDL Ratio 2.2 I & O for Last 24 hours: Intake & Output 08/11/22 08/12/22 08/13/22 08/14/22 23:59 23:59 23:59 23:59 Intake Total 180 / 180 0 / 0 Output Total 1999 575 / 575 Balance -1820 / -1820 -575 / -575 Weight 116 lb 6.818 oz 113 lb 12.8 oz Microbiology Reports for the Last 24 Hours: Microbiology 08/13/22 05:46 Urine,Catheterized Urine Culture - Preliminary NO GROWTH AFTER 24 HOURS Narrative: Telemetry strip is atrial fibrillation with a rate of 118 bpm. Constitutional Constitutional: no acute distress, average body habitus and chronically ill appearing *Routine HEENT Exam Head: Present normocephalic and atraumatic ENT: Present mucous membranes moist *Routine Neck Exam Neck: Present supple, full ROM and normal carotid upstroke; Absent JVD, carotid bruit or lymphadenopathy *Routine Respiratory Exam Respiratory: Present rales, normal respiratory effort, able to speak in complete sentences and symmetric chest movement *Routine Cardiovascular Exam Cardiovascular: Present Normal S1, Normal S2, murmur, tachycardia and irregularly irregular; Absent gallop *Routine Abdominal Exam Abdominal: Present soft and normoactive bowel sounds; Absent tenderness, distended or organomegaly *Routine Extremities Exam Extremities: Present edema (3+ BLEs), full ROM, pulses intact and normal capillary refill; Absent cyanosis or clubbing *Routine Skin Exam Skin: Present intact and warm; Absent erythema *Routine Neurological E
--- NOTE | 2022-08-14 11:31 | EXP.ACUTE.PN ---
Subjective *Date: 08/14/22 *Time: 12:07 Interval history: Patient states she is feeling okay this morning. Pain well controlled on current regimen. Stable on 5 L nasal cannula. Denies nausea or chest pain. Alert and oriented. Ready to proceed with surgery. Reiterated risk again today. Patient states understanding. -2.3 L in the past 24 hours. Currently n.p.o. awaiting surgical fixation of right hip fracture. Medical Exam Vital signs and Labs for Last 24 Hours: Vital Signs Temp Pulse Pulse Resp BP Pulse Ox 08/14/22 11:29 99 H 08/14/22 11:29 98 H 08/14/22 11:12 97.7 F 128 H 19 133/77 91 L 08/14/22 07:30 97.8 F 118 H 18 140/75 90 L 08/14/22 04:00 110 H 08/14/22 06:23 95 H 08/14/22 06:23 97 H 08/14/22 06:23 88 L 08/14/22 00:00 90 08/13/22 20:00 120 H 08/14/22 04:00 97.8 F 103 H 22 132/63 90 L 08/13/22 20:00 120 H 08/13/22 23:56 98.5 F 100 H 17 103/55 L 95 08/13/22 23:24 100 H 08/13/22 21:54 113 H 08/13/22 23:13 86 08/13/22 23:13 86 08/13/22 20:00 98.3 F 122 H 20 134/73 95 08/13/22 18:16 104 H 08/13/22 18:16 104 H 08/13/22 18:16 90 L 08/13/22 16:00 100 H 08/13/22 12:00 120 H 08/13/22 15:42 97.9 F 87 21 146/79 H 96 Intake and Output 08/13/22 08/14/22 08/14/22 23:59 07:59 15:59 Intake Total 120 / 180 0 / 0 Output Total 575 / 575 0 / 575 Balance 120 / -1820 -575 / -575 0 / -575 Intake: Intake, Oral Amount 120 / 180 0 / 0 Output: Output, Urine Amount 575 / 575 0 / 575 Other: Number of Unmeasured Voids 0 0 0 Weight 51.619 kg Patient Weight 08/14/22 23:59 Weight 51.619 kg Laboratory Results - last 24 hr 08/13/22 10:55: Troponin I 0.22 H 08/13/22 18:28: Sodium 144, Potassium 4.1, Chloride 105, Carbon Dioxide 32 H, Anion Gap 11.1, BUN 30 H, Creatinine 1.40 H, Estimated Creat Clear 25, Estimated GFR 36 L, Est GFR ( Amer) 43 L, Glucose 128 H, Calcium 9.2 08/14/22 07:00: WBC 7.3, RBC 3.46 L, Hgb 11.2 L, Hct 35.5 L, MCV 102.5 H, MCH 32.4 H, MCHC 31.6 L, RDW 17.3, Plt Count 142, MPV 8.0, Neut % (Auto) 82.0 H, Lymph % (Auto) 12.1, King % (Auto) 5.4, Eos % (Auto) 0.3, Baso % (Auto) 0.3, Neut # (Auto) 6.0, Lymph # (Auto) 0.9, King # (Auto) 0.4, Eos # (Auto) 0.0, Baso # (Auto) 0.0 08/14/22 07:00: Sodium 144, Potassium 4.1, Chloride 108 H, Carbon Dioxide 31 H, Anion Gap 9.1, BUN 31 H, Creatinine 1.40 H, Estimated Creat Clear 24, Estimated GFR 36 L, Est GFR ( Amer) 43 L, Glucose 113 H, Calcium 8.7, Magnesium 1.4 L, Total Bilirubin 1.2, AST 48 H, ALT 25, Alkaline Phosphatase 114, Total Protein 7.0, Albumin 3.9, Globulin 3.1, Albumin/Globulin Ratio 1.3 08/14/22 07:00: Triglycerides 107, Cholesterol 110 L, LDL Cholesterol Direct 34.76 L, VLDL Cholesterol 21, HDL Cholesterol 51, Cholesterol/HDL Ratio 2.2 I & O for Labs for Last 24 Hours: Intake & Output 08/11/22 08/12/22 08/13/22 08/14/22 23:59 23:59 23:59 23:59 Intake Total 180 / 180 0 / 0 Output Total 1999 575 / 575 Balance -1820 / -1820 -575 / -575 Weight 52.81 kg 51.619 kg Microbiology Reports for the Last 24 Hours: Microbiology 08/13/22 05:46 Urine,Catheterized Urine Culture - Preliminary NO GROWTH AFTER 24 HOURS Constitutional: Present no acute distress, thin and chronically ill appearing Head: Present atraumatic and normocephalic ENT: Present normal exam Respiratory: Present wheezes and diminished air movement; Absent accessory muscle use, rhonchi or crackles Cardiac: Present Regular Rhythm and Tachycardia GI: Present soft and normal bowel sounds; Absent distention or tenderness Extremities: Present normal inspection Comment:: right hip TTP Skin: Present intact; Absent erythema Neuro: Present Cranial Nerve 2-12 Intact, Grossly Intact, alert, awake and oriented x 3 Assessment and Plan *Assessment and plan (1)
--- NOTE | 2022-08-14 12:48 | P.PN_ITS ---
[facility] Disclaimer: The information contained in this section may have been updated after the patient was seen, as this information can be updated by other users. Medical History Aortic stenosis Atrial fibrillation Breast cancer Cardiomyopathy CHF (congestive heart failure) COPD (chronic obstructive pulmonary disease) Dyspnea Elevated troponin History of gastroesophageal reflux (GERD) History of GI bleed Hyperlipidemia Hypertension On home oxygen therapy Tricuspid regurgitation Surgical History H/O bilateral mastectomy History of hip replacement Family History (Updated 08/13/22 @ 12:17 by Jessica Salazar RN) Other Lung cancer Social History Smoking Status: Never smoker alcohol intake: never substance use type: denies use current occupational status: retired Travel in the last 8 weeks: None [facility] Anesthesia Checklist Patient Identification Patient Identification: Verbal (Name & ) Structural Data Admitted From: Inpatient Planned Operative Procedure/s: orif r hip Consent for Planned Operative Procedure(s) Verified: Yes Airway Assessment C-Spine Mobility Assessed: Yes TMJ Mobility Assessed: Yes Dentition: Poor Dentition Neurological Assessment Level of Consciousness: Awake, Alert and Appropriate Anesthesia Plan Anesthesia Risk discussed: Yes Anesthesia Plan: Verified ASA Class: IV Anesthesia Type: Spinal Preoperative Comments Pre-Operative Comments: pt is high risk due to CHF and poor pulmonary function sats in the 80s
--- NOTE | 2022-08-14 12:55 | SUR.OPER ---
late entry... 1224-while positioning pt on surgical bed in lateral position, decline in pt's status noted per CHANG Castro and decision was made per CHANG Singleton and Dr. Mari to not proceed further with the planned surgical procedure. Dr. Mari notified family at this time and discussed further plan of care. Pt transferred back to hospital bed from surgical table per staff, applied 10L via simple mask on portable oxygen tank, and pt transported to pacu. Detailed bedside report given to PAUL Zhang taking over care of pt, anesthesia and MD at bedside, O2 via 100% NRB applied to pt and pt's sats noted to be improving. Pt left in care of PAUL Zhang with bed locked in lowest position.
--- NOTE | 2022-08-14 13:05 | SUR.PHASEI ---
1305-Notified CHANG Castro regarding pt's BP. CNRA is fine w/ MAP >60 and systolics in the 80's d/t pt receiving spinal block.
--- NOTE | 2022-08-14 13:31 | P.PN_ITS ---
[facility] Disclaimer: The information contained in this section may have been updated after the patient was seen, as this information can be updated by other users. Medical History Aortic stenosis Atrial fibrillation Breast cancer Cardiomyopathy CHF (congestive heart failure) COPD (chronic obstructive pulmonary disease) Dyspnea Elevated troponin History of gastroesophageal reflux (GERD) History of GI bleed Hyperlipidemia Hypertension On home oxygen therapy Tricuspid regurgitation Surgical History H/O bilateral mastectomy History of hip replacement Family History (Updated 08/13/22 @ 12:17 by Jessica Salazar RN) Other Lung cancer Social History (Updated 08/14/22 @ 12:51 by Harvey Gonzalez CRNA) Smoking Status: Never smoker alcohol intake: never substance use type: denies use current occupational status: retired Travel in the last 8 weeks: None [facility] Anesthesia Checklist Patient Identification Patient Identification: Verbal (Name & ) Structural Data Admitted From: Inpatient Planned Operative Procedure/s: labor epidural Consent for Planned Operative Procedure(s) Verified: Yes Airway Assessment C-Spine Mobility Assessed: Yes TMJ Mobility Assessed: Yes Dentition: Good Dentition Neurological Assessment Level of Consciousness: Awake, Alert and Appropriate Anesthesia Plan Anesthesia Risk discussed: Yes Anesthesia Plan: Verified ASA Class: II Anesthesia Type: Epidural
--- NOTE | 2022-08-14 23:06 | PC.NURSE ---
Janey KEITH notified about tachycardia.
[2022-08-15] VITALS: BP 129/84; PULSE 140; RESP 26; TEMP 36.4; O2SAT 97
--- NOTE | 2022-08-15 01:03 | EXP.DEATH.DS ---
Discharge Sum: Prov Provider Primary care physician: hSelton Vasquez Visit Care Team Role Provider Type Shelton Vasquez Primary Care Provider Referring Christian Edouard MD Other Providers Consulting Physician Matthew Mujica MD Other Providers Staff Physician ARIADNA Rosario Other Providers Physician Long Chain Beamer Joie Burks MD Other Providers Consulting Physician Isaiah Mari DO Other Providers Staff Physician Fracisco Chen MD Other Providers Consulting Physician Durga Gagnon MD Other Providers Staff Physician Renita Fuller APRN Other Providers Nurse Practitioner Brittany Fernandes APRN Other Providers Nurse Practitioner Corey Schroeder (ED), Emergency Provider ER Physician Lucien Fu MD Admit Provider Physician Attending Provider Admitting clinician: Salvador Colon Attending physician on admission: Salvador Colon Consults: 08/13/22 06:13 Consult to Orthopedic Surgery [CONS] Routine Consulting Provider: Isaiah Mari Reason For Consult: Right Hip Fracture 08/13/22 07:33 Cardiology Consult [Consult to Cardiology] [CONS] Routine Consulting Provider: Cardiology Reason For Consult: for surgical optimization. Pronouncing clinician: Joshua Rasmussen Discharge Sum: Diag Contributing Factors (1) Hip fracture, right: (2) Atrial fibrillation: (3) COPD (chronic obstructive pulmonary disease): (4) Hypothyroidism: (5) Anxiety disorder: (6) Hyperlipidemia: Discharge Sum: Summary Date and Time Date of admission: 08/13/22 06:51 Date of : 08/15/22 Time of : 12:45 Hospital Course prior to Hospital Course Information: 82-year-old female with past medical history of Atrial Fibrillation, not on chronic anticoagulation, COPD home oxygen dependent, Hypothyroidism, Anxiety Disorder presented following a ground-level fall in the home while transferring to the wheel chair with family.? Cardiology and orthopedics consulted for optimization and surgical evaluation.? Summary Details: The patient was taken to the OR on 08/14 for surgery after cardiology evaluated and optimized. Determined to be a high risk for surgery, however family elected to proceed with surgery understanding the risk. When placed on the operating table and rolled to her left side to perform right hemiarthroplasty, patient decompensated, became hypotensive and hypoxic into the 60's. Patient determined to not be clinically stable enough to perform surgery. This was discussed with family who elected medical management and wanted to take the patient home, hospice discussions were undertaken. On the evening of 08/15 the patient was moved from the bed 218 to 205. RN reported upon moving the patient that she stopped breathing. She was a DNR/DNI. Upon arriving to the room the patient was not breathing. Heart sounds were void. The patient had no response to pain. Daughter was at bedside during exam. Time of was 1245. Physical Exam Cardiology: No heart sounds Respiratory: No chest movement, no breath sounds auscultated Neuro: No response to painful stimuli, pupils fixed and dilated Additional Data Confirmation of as documented by pronouncing clinician: no pulse, no respirations, no heart sounds and pupils fixed and dilated Family: at bedside Additional persons at bedside: disability hearing officer Attending/PCP notified?: No Attending physician: Lucien Melgar
--- NOTE | 2022-08-15 01:14 | PC.NURSE ---
Patient time of 08/15/2022 at 00:45am pronounced by Hospitalist Joshua Rasmussen DNP. [facility] notified 08/15/2022 at 01:09am, ruled out for donation due to age per Coordinator Pranav Rascon, .
--- NOTE | 2022-08-15 02:45 | PC.NURSE ---
I spoke with Amy at [facility] at this time. She took pt information and will contact the director.
--- NOTE | 2022-08-15 04:10 | PC.NURSE ---
Pt off the floor with Kristyn @ [phone].
== END 2022-08-15 04:10 | disposition expired | DRG 535 ==
LOC: ER 05:31 → 2ND 06:09
PROVIDERS: Internal Medicine Adolescent Medicine; Nurse Practitioner Family; Orthopaedic Surgery; Admitting Provider Family Medicine; Emergency Provider Emergency Medicine; PCP Pediatrics; Visit Provider Family Medicine
DX: S72.011A Unspecified intracapsular fracture of right femur, initial encounter for closed fracture (principal); I50.43 Acute on chronic combined systolic (congestive) and diastolic (congestive) heart failure; J96.90 Respiratory failure, unspecified, unspecified whether with hypoxia or hypercapnia; I13.0 Hypertensive heart and chronic kidney disease with heart failure and stage 1 through stage 4 chronic kidney disease, or unspecified chronic kidney disease; I42.9 Cardiomyopathy, unspecified; I48.20 Chronic atrial fibrillation, unspecified; N39.0 Urinary tract infection, site not specified; Z53.09 Procedure and treatment not carried out because of other contraindication; E03.9 Hypothyroidism, unspecified; N18.9 Chronic kidney disease, unspecified; K21.9 Gastro-esophageal reflux disease without esophagitis; E78.5 Hyperlipidemia, unspecified; Z99.81 Dependence on supplemental oxygen; Z96.642 Presence of left artificial hip joint; I08.2 Rheumatic disorders of both aortic and tricuspid valves; F41.9 Anxiety disorder, unspecified; W19.XXXA Unspecified fall, initial encounter; Z66 Do not resuscitate; T88.59XA Other complications of anesthesia, initial encounter
CPT/HCPCS: 27236; 36415; 51702; 71045; 73502; 73700; 80048; 80053; 80061; 81001; 82607; 83735; 83880; 84436; 84443; 84484; 85025; 87086; 93005; 93306; 94640; 99285; C9803; J3475; U0003; U0005